=== PATIENT | male | born 1990 | race Caucasian/White ===

== ENCOUNTER 2019-12-14 11:21 | Emergency (ER) | payer OTHER ==
[2019-12-14 11:47] LABS: Bilirubin Negative (Negative); Blood, Urine Negative (Negative); Clarity Clear (Clear); Glucose, Urine (Dipstick) Negative (Negative); Ketone, Urine Negative (Negative); Leukocyte Negative (Negative); Nitrite Negative (Negative); Protein, Urine (Dipstick) Negative (Neg-Trace); Urobilinogen 0.2 mg/dL (Less than 2); pH, Urine 7.5 (5.0-9.0)
[2019-12-14 12:34] LABS: #Basophils 0.1 thou/uL (0.0-0.2); #Eosinphils 0.1 thou/uL (0.0-0.7); #Lymphocytes 1.2 thou/uL (1.20-3.40); #Monocytes 0.4 thou/uL (0.11-0.59); #Neutrophils 2.7 thou/uL (1.40-6.50); %Basophils 1.2 % (0.0-1.0); %Eosinophils 3.2 % (0.0-10.0); %Lymphocytes 27.2 % (21.0-51.0); %Monocytes 8.3 % (0.0-10.0); Hemoglobin 13.9 g/dL (14.0-18.0); Mean Corpuscular HGB CONC 31.9 g/dL (32.0-36.0); Mean Corpuscular Hemoglobin 29.3 pg (27.0-31.0); Mean Platelet Volume 6.3 fL (7.4-10.4); Platelet Count 273 thou/uL (130-400); RBC Distribution Width 11.9 % (11.5-14.5); Red Blood Cell (RBC) Count 4.74 mill/uL (4.70-6.10); White Blood Cell (WBC) Count 4.5 thou/uL (4.8-10.8)
[2019-12-14 12:45] LABS: ALT (SGPT) 20 U/L (8-55); AST (SGOT) 16 U/L (5-34); Albumin 4.4 g/dL (3.5-5.0); Alkaline Phosphatase 40 U/L (40-110); Anion Gap 13 mmol/L (10-20); BUN (Urea Nitrogen) 10 mg/dL (8.9-20.6); Bilirubin, Total 0.4 mg/dL (0.2-1.2); Calc. Creatinine Clearance 0 mL/min (70-130); Calcium 8.9 mg/dL (7.8-10.44); Carbon Dioxide 26 mmol/L (22-29); Chloride 106 mmol/L (98-107); Estimated GFR-MDRD Greater than 90; Globulin 2.7 g/dL (2.4-3.5); Glucose 94 mg/dL (70-105); Lipase 25 U/L (8-78); Potassium 3.8 mmol/L (3.5-5.1); Protein, Total 7.1 g/dL (6.0-8.3); Sodium 141 mmol/L (136-145)
[2019-12-14] MEDS ORDERED: Azithromycin 250 MG TAB ONE (13:25)
[2019-12-14] MEDS ORDERED: cefTRIAXone\\ROCEPHIN 500 MG VIAL ONE (13:25)
[2019-12-14] MEDS ORDERED: Lidocaine 1% PF 5 ML VIAL ONE (13:25)
[2019-12-14] MEDS ORDERED: Doxycycline 100 MG CAP ONE (13:27)
--- NOTE | 2019-12-14 20:43 | CT ---
CT ABDOMEN AND PELVIS WITHOUT CONTRAST: Date: 12-14-2019 A noncontrast study was done for evaluation of this patient with right flank pain but no hematuria. U ginger questioning I hear that the patient has known renal cysts that have been worked up elsewhere by a urologist. FINDINGS: The lung bases are clear. The liver and spleen are normal in size. There is a cystic area attached to the anterior part of the spleen that is about 3 cm in size. Its significance is unknown, but I suspe ct that it is not a new finding. The pancreas, adrenal glands, and gallbladder showed no acute findin gs. Some nonobstructing calculi are seen in the kidneys. There is no sign of ureteral calculi. The ab dominal aorta was normal in caliber. The bowel shows no distention or wall thickening. No free air or free fluid was seen. A somewhat conf luent area in the left flank is felt to be fluid filled bowel adjacent to the psoas muscle. There is certainly no findings on the right side to explain the patient's current symptoms. CT of the pelvis shows no pelvic masses, fluid collections, or obvious inflammatory changes. Pelvic c alcifications are most likely phleboliths. There is a small increase in the amount of fecal material in the colon. I would note that there are some lucencies in each kidney. Statistically, they are most likely cysts and ultrasound would be needed to prove it. By history, the patient has had prior imaging that did sh ow renal cysts. IMPRESSION: 1. Nonobstructing bilateral renal calculi. No current evidence of urinary tract obstruction. 2. Presumed renal cysts. Seen discussion above. 3. 3 cm cystic area associated with the spleen. I presume a splenic cyst and somewhat doubt its curre nt significance. 4. Possible mild constipation. Findings discussed with Dr. Warren at 1246 on 12-14-2019. POS: HOME
[2019-12-15 20:59] LABS: Chlam.trachomatis by PCR,Urine Not Detected (NotDetected)
== END 2019-12-14 13:50 | disposition home or self-care (01) ==
LOC: BURERS 11:21
DX: N20.0 Calculus of kidney (principal); N28.1 Cyst of kidney, acquired; F41.9 Anxiety disorder, unspecified
CPT/HCPCS: 74176; 80053; 81003; 83690; 85025; 87086; 87491; 87591; 96372; J0696